=== PATIENT | female | born 1935 | race Caucasian/White ===

== ENCOUNTER 2016-11-17 09:39 | Observation (INO) | payer MEDICARE, OTHER ==
[2016-11-17] MEDS ORDERED: MORPHINE SULFATE 2 MG/ML DISP.SYRIN IV ONE ×2 (10:32→12:11)
[2016-11-17 10:33] LABS: Hemoglobin 12.9 gm/dL (12.5-16.0); Mean Cell Volume 82.4 fl (78-100); Mean Corpuscular Hgb Conc 33.9 g/dl (32-36); Mean Platelet Volume 9.4 fl (6.0-9.5); Neutrophil # 3.1 K/mm3 (1.3-6.0); Neutrophil % 58.2 % (42-75.0); Platelet Count 200 K/mm3 (150-450); Red Blood Count 4.61 M/mm3 (4.2-5.4); Red Cell Distribution Width 13.2 % (11.5-14.0); White Blood Count 5.4 K/mm3 (4.0-10.5)
--- OUTSIDE RECORDS SUMMARY | 2016-11-17 10:40 | XMS REPORT | Continuity of Care Document ---
:1935 Author Organization [facility] ([facility]) Address [address] [place] [address] Phone [phone] Care Team Providers Name Role Phone Keli Calvin Primary Care Provider [phone] Source Comments This disclosure is being made pursuant to the Care Everywhere program, applicable federal and state laws, and may not contain all informaitonavailable regarding this patient.[facility] ([facility]) Active Allergies and Adverse Reactions Not on File Current Medications Not on file Active Problems Not on file Social History Tobacco Use Types Packs/Day Years Used Date Never Assessed Plan of Care Health Maintenance Due Date Last Done Comments Hepatitis B Vaccine (1 of 3 - Primary Series) 1935 Tdap Vaccine 1945 Lipid Disorder Screening 01/09/1952 Td Vaccine 01/09/1952 Colonoscopy 1984 Zoster Vaccine 1994 Osteoporosis Screening (DXA Bone Density) 1999 Pneumococcal Vaccine (1 of 2 - PCV13) 1999 Influenza Vaccine: Seasonal (#1) 05/08/2016 Results from Last 3 Months Not on file
[2016-11-17 10:54] LABS: Troponin I Less than 0.017 ng/ml (0.00-0.10)
[2016-11-17 10:57] LABS: ALT 31 U/L (19-67); AST 22 U/L (0-48); Albumin * 3.5 gm/dl (3.4-5.0); Alkaline Phosphatase * 69 U/L (50-170); Anion Gap 14.5 mmol/L (6.8-13.8); BUN/Creatinine Ratio 14.1 (9.0-21.6); Bilirubin, Total 0.5 mg/dL (0.0-1.1); Blood Urea Nitrogen 10 mg/dL (3-23); CRP 0.3 mg/dL (0.0-0.9); Ca. Corrected For Albumin 9.1 mg/dL (8.4-10.2); Carbon Dioxide 28.1 mmol/L (24-32.6); Chloride 101 mmol/L (97-106); Glucose * 156 mg/dL (70-110); Potassium 3.6 mmol/L (3.4-4.6); Sodium 140 mmol/L (132-142); Total Protein 7.2 gm/dL (6.2-8.2)
[2016-11-17] MEDS ORDERED: MORPHINE SULFATE 2 MG/ML DISP.SYRIN ONE ×2 (11:00→12:20)
[2016-11-17] MEDS: NORMAL SALINE 1,000 ML IV PRN ×2 (11:30→20:24)
--- OUTSIDE RECORDS SUMMARY | 2016-11-17 12:44 | XMS REPORT | Continuity of Care Document ---
:1935 Author Organization [facility] ([facility]) Address [address] [place] [address] Phone [phone] Care Team Providers Name Role Phone Keli Calvin Primary Care Provider [phone] Source Comments This disclosure is being made pursuant to the Care Everywhere program, applicable federal and state laws, and may not contain all informaitonavailable regarding this patient.[facility] ([facility]) Active Allergies and Adverse Reactions Not [...]
--- NOTE | 2016-11-17 12:51 | ERNOTE ---
Medical Problem HPI - Narrative Date of Service: 11/17/16 - General Chief Complaint: General Assessment Time Seen by Provider: 11/17/16 09:58 Source: family Exam Limitations: clinical condition, other - Pt speaks softly and will not respond to some questions - Immun/Allergies/Home Medications Immunizations: IMMUNIZATION HX Immunizations Up to Date Yes History of Influenza Vaccine Yes Hx Pneumococcal Vaccination Yes Allergies/Adverse Reactions: Allergies promethazine HCl [From Phenergan] Adverse Reaction (Verified 02/27/16 15:03) tramadol Adverse Reaction (Verified 02/27/16 15:03) Home Medications: HOME MEDICATIONS ALPRAZolam [Xanax] 0.5 mg PO Q6H PRN 02/27/16 [Last Taken Unknown] Albuterol Sulfate [Proair Respiclick] 90 mcg IH Q6H PRN 02/27/16 [Last Taken Unknown] Aspirin 81 mg PO DAILY 02/27/16 [Last Taken Unknown] Esomeprazole Magnesium [Nexium] 40 mg PO DAILY 02/27/16 [Last Taken Unknown] Metoprolol Succinate [Toprol Xl] 100 mg PO DAILY 02/27/16 [Last Taken Unknown] Multivitamin [One Daily Essential] 1 each PO DAILY 02/27/16 [Last Taken Unknown] Venlafaxine HCl [Effexor] 75 mg PO DAILY 02/27/16 [Last Taken Unknown] Acetaminophen [Tylenol] 325 mg PO Q4H 11/17/16 [Last Taken Unknown] Atorvastatin Calcium 20 mg PO HS 11/17/16 [Last Taken Unknown] Cefuroxime Axetil [Ceftin] 500 mg PO BID 11/17/16 [Last Taken Unknown] Cholecalciferol (Vitamin D3) [Vitamin D3] 2,000 unit PO DAILY 11/17/16 [Last Taken Unknown] Docusate Sodium [Stool Softener] 1 - 2 cap PO HS 11/17/16 [Last Taken Unknown] Lisinopril/Hydrochlorothiazide [Lisinopril-Hctz 20-12.5 mg Tab] 0.5 tab PO DAILY 11/17/16 [Last Taken Unknown] Montelukast Sodium [Singulair] 10 mg PO HS 11/17/16 [Last Taken Unknown] Nystatin 1 each TP TID 11/17/16 [Last Taken Unknown] - History of Present History Narrative: Complicated Hx. patient brought in by family today for evaluation of headache, generalized weakness, back and side pains, occasional abdominal pains. History difficult to obtain from her. Family relates she was seen in the ED at [place] yesterday. Dx HI, bronchitis and constipation. She has not been doing well since d/c from ER w, screaming out in pain, not able to get around. Lives at home with family. She states several weeks of left HI behind her left ear that has generalized to her head and she has severe HI that she had a CT for yesterday. She relats pain in her back and sides but not sure how long this has been going on for. Had CXR yesterday that showed pleural effusion and possible pneumonia. No clear focal weakness. She states her eyes burn. Occasional abdominal pains, had x-ray for this yesterday. Old records reviewed from [place]. Timing: constant, getting worse Severity: severe Modifying Factors - (Improves): Present: other - nothing Modifying Factors - (Worsens): Present: other - nothign Review of Systems - Narrative Narrative: ROS difficult to obtain ginve condition. - Review of Systems Constitutional: Absent: fever EYE: Present: other - eyes burning ENT: Absent: sore throat Respiratory: Present: cough Cardiology: Present: other - occasional chest pains, no pleuritic pain. Gastrointestinal/Abdominal: Present: See HPI Genitourinary: Absent: dysuria Musculoskeletal: Present: back pain Skin: Absent: rash All Other Systems: All systems neg except as marked - Patient's Past Medical History Patient History - Medical: Anxiety, Arthritis Patient History - Cardiac/Respiratory: No pertinent hx Patient History - Cancer: No Hx of Cancer Patient History - Surgical Procedures: Appendectomy, Cholecystectomy, Hysterectomy, T & A Patient History - Other: None LMP (females 10-50): Menopausal - Social History Living Situations: home Abuse History: No History of abuse Psych History: Hx of Anxiety Smoking Status: Never smoker Alcohol Use: none Drug Use: none - Immunizations Immunizations Up to Date: Yes Hx Pneumococcal Vaccination: Yes History of Influenza Vaccine: Yes Physical Exam - Physical Exam General Appearance: Present: other - crying, will yell out in pain at times. Eyes closed in bed. Responds but speaks very softly and does not answer some questions. Eye Exam: Normal inspection: bilateral, PERRL: bilateral - post surgical, lenses Ears, Nose, Throat: Present: dry mucous membranes, other - No temopral artery tenderness. No trauma, no rash Neck: Present: normal inspection, other - muscular tendenrss left lateral muscles neck Respiratory: Present: no respiratory distress, no accessory muscle use. Absent : wheezing Cardiovascular/Chest: Present: regular rate, rhythm Gastrointestinal/Abdominal: Present: normal bowel sounds, other - mild YANG abdominal tenderness. No guarding or rebound. No peritoneal signs. Non- surgical exam. Back Exam: Present: other - tendernss with palpation upper back muscles Extremity Exam: Present: other - no DVT findings Neurological Exam: Present: other - difficult exam however there is no clear evidenc of stroke or acute unilateral focal motor or snesoty deficit. Skin Exam: Present: warm/dry, other - no shingles seen ED Progress - Results and Orders Patient's Lab Results:: I have reviewed the patient's lab results. - Vital Signs Patient's Vital Signs:: I have reviewed the patient's vital signs. Vital Signs: Vital Signs 11/17/16 11/17/16 11/17/16 09:40 10:45 11:15 Temperature 36.1 C L Pulse Rate 82 81 74 Respiratory 18 15 8 L Rate Blood Pressure 156/61 147/64 143/71 O2 Sat by Pulse 99 98 92 Oximetry 11/17/16 12:14 Temperature Pulse Rate 75 Respiratory 12 Rate Blood Pressure 148/81 O2 Sat by Pulse 96 Oximetry - EKG EKG: NSR EKG read: Interp. by me EKG Comments: NSR rate 78. No STEMI. Non-specific changes. - Progress/Reassessment Chief Complaint: General Assessment Progress Note-Subjective: 11/17/16 12:47 I reviewed old paperwork. I reviewed CXR, head CT and abdominal x-ray. Will treat as pneumonia based on yesterdays CXR. Unclear etiology of all Sx. D/W Dr Carrero who will admit obs for further eval and management. CPK and UA stillpending. Departure - Departure Clinical Impression: Generalized weakness, Pneumonia, Headache, Intractable pain Disposition: [facility] Referrals: [Primary Care Provider] -
[2016-11-17] MEDS: LEVOFLOXACIN/D5W 500 MG/100 ML BAG IV SCH (12:59)
[2016-11-17 14:23] LABS: Urine Appearance Clear; Urine Bilirubin Negative (NEGATIVE); Urine Blood Negative /ul (NEGATIVE); Urine Color Yellow; Urine Ketone 15 mg/dL (NEGATIVE); Urine Nitrite Negative (NEGATIVE); Urine Protein Negative (NEGATIVE); Urine Urobilinogen Normal (NORMAL); Urine WBC 0-5 /hpf (0-5)
[2016-11-17 14:24] LABS: Urine Bacteria 1+; Urine RBC None Seen /hpf (0-5)
[2016-11-17] MEDS ORDERED: ACETAMINOPHEN 325 MG TABLET PO PRN (14:24)
[2016-11-17] MEDS ORDERED: KETOROLAC TROMETHAMINE 30 MG/ML VIAL IV PRN (14:26)
[2016-11-17] MEDS ORDERED: KETOROLAC TROMETHAMINE 30 MG/ML VIAL IV ONE (14:26)
[2016-11-17] MEDS ORDERED: MORPHINE SULFATE 2 MG/ML DISP.SYRIN IV PRN (16:38)
--- NOTE | 2016-11-17 18:13 | HP ---
Chief Complaint - Chief Complaint Date of Service: 11/17/16 Time of Service: 12:00 Chief Complaint: Headache History of Present Illness: Megan is an 81 yo female with severe headache. Pain located behind left ear, she feels dizzy, nauseated, has not had a headache like this before. She denies changes in activity, diet, or medications. No trauma. No focal weakness, numbness, no gait disturbance. No hearing change, vision change. She also reports neck pain and stiffness. No fever. She does report to being under more stress lately. She reports occasional abdominal pain and myalgias. - Patient's Past Medical History Patient History - Medical: Anxiety, Arthritis, Diabetes Type 2 Patient History - Cardiac/Respiratory: No pertinent hx Patient History - Cancer: No Hx of Cancer Patient History - Surgical Procedures: Appendectomy, Cholecystectomy, Hysterectomy, T & A, Other Patient History - Other: None LMP (females 10-50): Menopausal - Family History Father Family History - Medical: Family History - Cardiac/Respiratory: CHF Mother Family History - Medical: , No pertinent hx Family History - Cardiac/Respiratory: No pertinent hx Family History - Cancer: No pertinent family hx - Social History Living Situations: home Abuse History: No History of abuse Psych History: Hx of Anxiety Smoking Status: Never smoker Have you smoked in the past 12 months: No Do you dip or chew tobacco: No Alcohol Use: none Drug Use: none - Immunizations Immunizations Up to Date: Yes Hx Pneumococcal Vaccination: Yes History of Influenza Vaccine: Yes Review Of Systems (GEN) - Review of Systems Generalized/Overall Review: Present: Malaise. Absent: Weakness, Chills, Fever EENTM: Present: No Symptoms Reported Respiratory: Present: Cough. Absent: Shortness of Breath, Orthopnea, Wheezing Cardiac: Present: No Symptoms Reported Abdominal: Present: Nausea, Abdominal Pain. Absent: Vomiting, Hematemesis, Constipation, Diarrhea Genitourinary: Present: No Symptoms Reported Musculoskeletal: Present: Muscle Pain, Neck Pain Neurological: Present: Headache, Anxiety, Depressed. Absent: Tremors, Weakness Skin: Present: No Symptoms Reported Endocrine: Present: No Symptoms Reported Allergies/Adverse Reactions: Allergies Allergy/AdvReac Type Severity Reaction Status Date / Time ibuprofen AdvReac Verified 11/23/16 14:11 NSAIDS (Non-Steroidal AdvReac Verified 11/23/16 14:11 Anti-Inflamma promethazine HCl AdvReac Verified 11/23/16 14:11 [From Phenergan] tramadol AdvReac Verified 11/23/16 14:11 Home Medications: HOME MEDICATIONS ALPRAZolam [Xanax] 0.5 mg PO Q6H PRN 02/27/16 [Last Taken Unknown] Albuterol Sulfate [Proair Respiclick] 2 puff IH Q6H PRN 02/27/16 [Last Taken Unknown] Aspirin 81 mg PO DAILY 02/27/16 [Last Taken Unknown] Esomeprazole Magnesium [Nexium] 40 mg PO DAILY 02/27/16 [Last Taken Unknown] Metoprolol Succinate [Toprol Xl] 100 mg PO DAILY 02/27/16 [Last Taken Unknown] Multivitamin [One Daily Essential] 1 each PO DAILY 02/27/16 [Last Taken Unknown] Venlafaxine HCl [Effexor] 75 mg PO DAILY 02/27/16 [Last Taken Unknown] Acetaminophen [Tylenol] 325 mg PO Q4H PRN 11/17/16 [Last Taken Unknown] Atorvastatin Calcium 20 mg PO HS 11/17/16 [Last Taken Unknown] Cholecalciferol (Vitamin D3) [Vitamin D3] 2,000 unit PO DAILY 11/17/16 [Last Taken Unknown] Docusate Sodium [Stool Softener] 1 - 2 cap PO HS 11/17/16 [Last Taken Unknown] Lisinopril/Hydrochlorothiazide [Lisinopril-Hctz 20-12.5 mg Tab] 0.5 tab PO DAILY 11/17/16 [Last Taken Unknown] Montelukast Sodium [Singulair] 10 mg PO HS 11/17/16 [Last Taken Unknown] Nystatin 1 each TP TID 11/17/16 [Last Taken Unknown] predniSONE [Prednisone] 1 tab PO DAILY #7 tab 11/18/16 [Last Taken Unknown] Exam - Exam Vital Signs: Vital Signs - Last Taken Temp 36.8 C 11/17/16 15:11 Pulse 75 11/17/16 15:11 Resp 12 11/17/16 15:11 BP 158/70 11/17/16 15:11 Pulse Ox 96 11/17/16 15:11 Constitutional: Present: Alert, Oriented x3, Cooperative ENT Exam: Present: hearing grossly normal, TMs normal Eye Exam: bilateral eye: normal inspection Neck: Present: non-tender, full range of motion, normal inspection Respiratory: Present: chest non-tender, lungs clear, normal breath sounds Cardiovascular/Chest: Present: regular rate, rhythm, no murmur Abdomen: Present: Normal bowel sounds, soft, nontender, nondistended, no rebound tenderness, no hepatospenomegaly Extremity: Present: normal inspection Skin Exam: Present: normal color, warm/dry, no cyanosis Lymphatic: Present: no adenopathy Neurologic: Present: maintenance advisor II-XII nml as tested, no motor/sensory deficits, alert , normal mood/affect, oriented x 3 Appearance: Present: appropriate appearance, appropriate insight Diagnostic Studies: Laboratory Results WBC 5.4 K/mm3 (4.0-10.5) 11/17/16 10:25 RBC 4.61 M/mm3 (4.2-5.4) 11/17/16 10:25 Hgb 12.9 gm/dL (12.5-16.0) 11/17/16 10:25 Hct 38.0 % (37.0-47.0) 11/17/16 10:25 MCV 82.4 fl (78-100) 11/17/16 10:25 MCH 28.0 pg (27-31) 11/17/16 10:25 MCHC 33.9 g/dl (32-36) 11/17/16 10:25 RDW 13.2 % (11.5-14.0) 11/17/16 10:25 Plt Count 200 K/mm3 (150-450) 11/17/16 10:25 MPV 9.4 fl (6.0-9.5) 11/17/16 10:25 Immature Gran % (Auto) 0.20 % (0.001-0.429) 11/17/16 10:25 Immature Gran # (Auto) 0.01 K/mm3 (0.000-0.0310) 11/17/16 10:25 Neutrophils % 58.2 % (42-75.0) 11/17/16 10:25 Lymphocytes % 31.9 % (20-51) 11/17/16 10:25 Monocytes % 6.9 % (0.0-9) 11/17/16 10:25 Eosinophils % 2.4 % (0.0-3.0) 11/17/16 10:25 Basophils % 0.4 % (0.0-1.0) 11/17/16 10:25 Nucleated RBC % 0.0 k/mm3 (0-1) 11/17/16 10:25 Neutrophils # 3.1 K/mm3 (1.3-6.0) 11/17/16 10:25 Lymphocytes # 1.7 k/mm3 (1.5-3.5) 11/17/16 10:25 Monocytes # 0.4 k/mm3 (0.0-1.0) 11/17/16 10:25 Eosinophils # 0.1 k/mm3 (0.0-0.7) 11/17/16 10:25 Absolute Basophils 0.0 k/mm3 (0.0-0.1) 11/17/16 10:25 ESR 29 mm/hr (0-15) H 11/17/16 10:25 Sodium 140 mmol/L (132-142) 11/17/16 10:25 Plasma Sodium 141 mmol/L (130-142) 11/17/16 10:25 Potassium 3.6 mmol/L (3.4-4.6) 11/17/16 10:25 Chloride 101 mmol/L (97-106) 11/17/16 10:25 Carbon Dioxide 28.1 mmol/L (24-32.6) 11/17/16 10:25 Anion Gap 14.5 mmol/L (6.8-13.8) H 11/17/16 10:25 BUN 10 mg/dL (3-23) 11/17/16 10:25 Creatinine 0.71 mg/dL (0.4-1.4) 11/17/16 10:25 Est GFR (Non-Af Amer) 84 mL/min (60-130) 11/17/16 10:25 BUN/Creatinine Ratio 14.1 (9.0-21.6) 11/17/16 10:25 Random Glucose 156 mg/dL (70-110) H 11/17/16 10:25 Lactic Acid, Venous 2.2 mmol/L (0.4-2.0) H* 11/17/16 12:55 Calcium 9.0 mg/dL (7.9-10.9) 11/17/16 10:25 Calcium Adj for Albumin 9.1 mg/dL (8.4-10.2) 11/17/16 10:25 Total Bilirubin 0.5 mg/dL (0.0-1.1) 11/17/16 10:25 AST 22 U/L (0-48) 11/17/16 10:25 ALT 31 U/L (19-67) 11/17/16 10:25 Alkaline Phosphatase 69 U/L (50-170) 11/17/16 10:25 Creatine Kinase 56 U/L (0-259) 11/17/16 10:28 Troponin I Less than 0.017 ng/ml (0.00-0.10) 11/17/16 10:25 C-Reactive Prot, Quant 0.3 mg/dL (0.0-0.9) 11/17/16 10:25 Total Protein 7.2 gm/dL (6.2-8.2) 11/17/16 10:25 Albumin 3.5 gm/dl (3.4-5.0) 11/17/16 10:25 Lipase 117 U/L (73-393) 11/17/16 10:20 Urine Color Yellow 11/17/16 13:52 Urine Appearance Clear 11/17/16 13:52 Urine pH 8.0 pH (5.0-7.0) H 11/17/16 13:52 Ur Specific [place] 1.020 SP.GR. (1.005-1.010) 11/17/16 13:52 Urine Protein Negative mg/dL (NEGATIVE) 11/17/16 13:52 Urine Glucose (UA) Negative mg/dL (NEGATIVE) 11/17/16 13:52 Urine Ketones 15 mg/dL (NEGATIVE) 11/17/16 13:52 Urine Blood Negative /ul (NEGATIVE) 11/17/16 13:52 Urine Nitrate Negative (NEGATIVE) 11/17/16 13:52 Urine Bilirubin Negative mg/dl (NEGATIVE) 11/17/16 13:52 Urine Urobilinogen Normal EU/dl (NORMAL) 11/17/16 13:52 Ur Leukocyte Esterase Negative /ul (NEGATIVE) 11/17/16 13:52 Urine RBC None seen /hpf (0-5) 11/17/16 13:52 Urine WBC 0-5 /hpf (0-5) 11/17/16 13:52 Ur Epithelial Cells 5-10 /hpf (0-5) H 11/17/16 13:52 Urine Bacteria 1+ (NONE) H 11/17/16 13:52 Urine Culture Comments No culture indicated 11/17/16 13:52 Influenza Type A Ag Negative (NEGATIVE) 11/17/16 14:35 Influenza Type B Ag Negative (NEGATIVE) 11/17/16 14:35 Assessment/Plan - Assessment/Plan (1) Severe headache Assessment: Megan is an 81 yo female with severe headache, myalgias, neck pain, and generalized not feeling well. Bloodwork reviewed which shows elevated ESR and lactic acid, but otherwise within normal limits. Patient recently had normal head CT at [facility]. Patient is in too much pain to be discharged from ER, therefore medicine was contacted for admission for observation and further evaluation. Pain is localized behind left ear. No ear abnormality note. No trauma. Will evaluate further with Brain MRI, consider lumbar puncture, however patient declines this at this time. No significant leukocytosis, no fever, no nuchal ridgity so I do not suspect meningitis. With patients recent stress and neck pain possibly severe tension headache, will treat with muscle relaxors and IV pain medication prn. Problem: Acute (2) Intractable pain Problem: Acute
[2016-11-17] MEDS ORDERED: METHYLPREDNISOLONE SOD SUCC 60 MG in WATER FOR INJ.,BACTERIOSTATIC 0 ML IV ONE (18:39)
[2016-11-17] MEDS: POLYETHYLENE GLYCOL 3350 119 GM BTL PO SCH ×2 (18:52→19:07)
[2016-11-17] MEDS ORDERED: METHYLPREDNISOLONE SOD SUCC/PF 125 MG/2 ML VIAL IV ONE (19:00)
[2016-11-17] MEDS ORDERED: METHYLPREDNISOLONE SOD SUCC 60 MG in WATER FOR INJ.,BACTERIOSTATIC 0 ML IV SCH (20:15)
[2016-11-17] MEDS ORDERED: MONTELUKAST SODIUM 10 MG TABLET PO SCH (21:00)
[2016-11-17] MEDS ORDERED: ROSUVASTATIN CALCIUM 10 MG TABLET PO SCH (21:00)
[2016-11-17] MEDS ORDERED: ONDANSETRON HCL/PF 2 MG/ML VIAL IV PRN (21:44)
[2016-11-17] MEDS: ALPRAZolam 0.5 MG TABLET PO PRN (23:32)
[2016-11-18] MEDS: NORMAL SALINE 1,000 ML IV PRN ×2 (04:39→13:07)
[2016-11-18] MEDS ORDERED: PANTOPRAZOLE SODIUM 40 MG TABLET.EC PO SCH (07:00)
[2016-11-18] MEDS ORDERED: VENLAFAXINE HCL 75 MG TABLET PO SCH (09:00)
[2016-11-18] MEDS ORDERED: CHOLECALCIFEROL 1,000 UNIT CAPSULE PO SCH (09:00)
[2016-11-18] MEDS ORDERED: LISINOPRIL 10 MG TABLET PO SCH (09:00)
[2016-11-18] MEDS ORDERED: METOPROLOL SUCCINATE 100 MG TABLET.SA PO SCH (09:00)
[2016-11-18] MEDS ORDERED: HYDROCHLOROTHIAZIDE 25 MG TABLET PO SCH (09:00)
[2016-11-18] MEDS ORDERED: MULTIVITAMINS 1 CAP CAPSULE PO SCH (09:00)
[2016-11-18] MEDS: POLYETHYLENE GLYCOL 3350 119 GM BTL PO SCH (09:43)
[2016-11-18] MEDS: ALPRAZolam 0.5 MG TABLET PO PRN (09:54)
[2016-11-18 10:58] LABS: Hematocrit 36.1 % (37.0-47.0); Hemoglobin 12.1 gm/dL (12.5-16.0); Mean Cell Volume 82.2 fl (78-100); Mean Corpuscular Hemoglobin 27.6 pg (27-31); Mean Corpuscular Hgb Conc 33.5 g/dl (32-36); Mean Platelet Volume 9.5 fl (6.0-9.5); Neutrophil # 4.8 K/mm3 (1.3-6.0); Neutrophil % 82.3 % (42-75.0); Platelet Count 199 K/mm3 (150-450); Red Blood Count 4.39 M/mm3 (4.2-5.4); Red Cell Distribution Width 13.1 % (11.5-14.0); White Blood Count 5.8 K/mm3 (4.0-10.5)
[2016-11-18 11:10] VITALS: BP 143/71
[2016-11-18 11:10] LABS: Albumin * 3.3 gm/dl (3.4-5.0); Anion Gap 15.5 mmol/L (6.8-13.8); BUN/Creatinine Ratio 11.6 (9.0-21.6); Bilirubin, Total 0.4 mg/dL (0.0-1.1); Ca. Corrected For Albumin 8.6 mg/dL (8.4-10.2); Calcium * 8.4 mg/dL (7.9-10.9); Carbon Dioxide 22.1 mmol/L (24-32.6); Potassium 3.6 mmol/L (3.4-4.6); Total Protein 6.9 gm/dL (6.2-8.2)
[2016-11-18] MEDS ORDERED: LEVOFLOXACIN/D5W 500 MG/100 ML BAG IV SCH (13:30)
[2016-11-18] MEDS: LEVOFLOXACIN/D5W 500 MG/100 ML BAG IV SCH (13:32)
--- NOTE | 2016-11-18 15:00 | DS ---
(1) Bronchitis Problem: Acute (2) Viral syndrome Problem: Acute (3) Generalized weakness Problem: Acute (4) Headache Problem: Acute Qualifiers: Headache type: tension-type Headache chronicity pattern: acute headache Intractability: not intractable Qualified Code(s): G44.209 - Tension-type headache, unspecified, not intractable (5) Intractable pain Problem: Acute Description of Stay: Megan Jack is an 81 yo female admitted with severe headache, malaise, myalgias, and cough. She had been evaluated with CT scan recently at another facility that was negative. A brain MRI was performed during hospital course which showed no etiology for her pain. Bloodwork overall normal, however elevated ESR and lactate. Chest xray showed no acute changes. Discussed getting a lumbar puncture, however patient declined. She had no nuchal stiffness, fever , or leukocytosis so I do not suspect meningitis. Inflenza was checked and negative. With her symptoms of generalized malaise and myalgias suspect viral illness with potential for bronchitis with her coughing that caused significant neck tension and tension headache. There was nothing else identified to explain her symptoms. She was treated with muscle relaxors and IV steroids and did improve some and felt comfortable being discharged to home. I feel that anti- inflammatories would work best for her pain but she is reportedly allergic to NSAIDs. She reports no problems with prednisone in the past, will therefore give a burst of prednisone for her at discharge to see if this will help further. Procedures Performed: none Discharge Disposition: Home self care Disposition: Home self-care Condition: Fair Discharge Activity: Activity as tolerated Discharge Diet: General/regular food Referrals: Meena Alcala DO [Associate] - (May call to establish in [place]) Faye Morales DO [Staff Physician] - (May call to establish in [place]) Problem Oriented Discharge Instructions to Patient/Family: Acute Bronchitis, [id number] Additional Patient Instructions (free text): Patient would like to establish with new physician. Dr. Morales and Dr. Alcala were names given as options to call and contact for appointments. Continue taking Azithromycin prescribed previously from the ER. Use massage and heat to neck. Prescriptions (Any new or edited meds): predniSONE [Prednisone] 1 tab PO DAILY #7 tab Complete Home Medications List: Complete Home Medication List: ALPRAZolam [Xanax] 0.5 mg PO Q6H PRN 02/27/16 Albuterol Sulfate [Proair Respiclick] 2 puff IH Q6H PRN 02/27/16 Aspirin 81 mg PO DAILY 02/27/16 Esomeprazole Magnesium [Nexium] 40 mg PO DAILY 02/27/16 Metoprolol Succinate [Toprol Xl] 100 mg PO DAILY 02/27/16 Multivitamin [One Daily Essential] 1 each PO DAILY 02/27/16 Venlafaxine HCl [Effexor] 75 mg PO DAILY 02/27/16 Acetaminophen [Tylenol] 325 mg PO Q4H PRN 11/17/16 Atorvastatin Calcium 20 mg PO HS 11/17/16 Cholecalciferol (Vitamin D3) [Vitamin D3] 2,000 unit PO DAILY 11/17/16 Docusate Sodium [Stool Softener] 1 - 2 cap PO HS 11/17/16 Lisinopril/Hydrochlorothiazide [Lisinopril-Hctz 20-12.5 mg Tab] 0.5 tab PO DAILY 11/17/16 Montelukast Sodium [Singulair] 10 mg PO HS 11/17/16 Nystatin 1 each TP TID 11/17/16 predniSONE [Prednisone] 1 tab PO DAILY #7 tab 11/18/16
== END 2016-11-18 16:00 | disposition home or self-care (01) ==
LOC: SUPCPDRO 09:39 → ER 09:39 → MS 12:39 → INTOOBSV 14:18 → OBSVTOIN 14:18
PROVIDERS: ADMIT Family Medicine; ATTEND Family Medicine
DX: B34.9 Viral infection, unspecified (principal); J40 Bronchitis, not specified as acute or chronic; R51 Headache; R53.1 Weakness
CPT/HCPCS: 36415; 70553; 71010; 80053; 81001; 82550; 83605; 83690; 84484; 85025; 85652; 86140; 87040; 87400; 93005; 96365; 96375; 99284; G0378

== ENCOUNTER 2016-11-23 13:43 | Emergency (ER) | payer MEDICARE, OTHER ==
[2016-11-23 14:20] LABS: Urine Bilirubin Negative (NEGATIVE); Urine Blood Negative /ul (NEGATIVE); Urine Ketone Negative (NEGATIVE); Urine Nitrite Negative (NEGATIVE); Urine Protein Negative (NEGATIVE); Urine Urobilinogen Normal (NORMAL); Urine pH 7.5 pH (5.0-7.0)
[2016-11-23 14:26] LABS: Urine Color Yellow
[2016-11-23 14:27] LABS: Urine Appearance Clear; Urine Bacteria None Seen; Urine RBC None Seen /hpf (0-5); Urine WBC 0-5 /hpf (0-5)
--- OUTSIDE RECORDS SUMMARY | 2016-11-23 15:02 | XMS REPORT | Continuity of Care Document ---
:1935 Author Organization [facility] ([facility]) Address [address] [place] [address] Phone [phone] Care Team Providers Name Role Phone Keli Calvin Primary Care Provider [phone] Source Comments This disclosure is being made pursuant to the Care Everywhere program, applicable federal and state laws, and may not contain all informaitonavailable regarding this patient.[facility] ([facility]) Active Allergies and Adverse Reactions Not [...]
[2016-11-23 15:22] VITALS: BP 153/74
--- NOTE | 2016-11-23 15:32 | ERNOTE ---
Medical Problem HPI - Narrative Date of Service: 11/23/16 - General Chief Complaint: General Assessment Time Seen by Provider: 11/23/16 14:47 Source: patient, family - daughter Exam Limitations: no limitations - Immun/Allergies/Home Medications Immunizations: IMMUNIZATION HX Immunizations Up to Date Yes History of Influenza Vaccine Yes Hx Pneumococcal Vaccination Yes Allergies/Adverse Reactions: Allergies ibuprofen Adverse Reaction (Verified 11/23/16 14:11) NSAIDS (Non-Steroidal Anti-Inflamma Adverse Reaction (Verified 11/23/16 14:11) promethazine HCl [From Phenergan] Adverse Reaction (Verified 11/23/16 14:11) tramadol Adverse Reaction (Verified 11/23/16 14:11) Home Medications: HOME MEDICATIONS ALPRAZolam [Xanax] 0.5 mg PO Q6H PRN 02/27/16 [Last Taken Unknown] Albuterol Sulfate [Proair Respiclick] 2 puff IH Q6H PRN 02/27/16 [Last Taken Unknown] Aspirin 81 mg PO DAILY 02/27/16 [Last Taken Unknown] Esomeprazole Magnesium [Nexium] 40 mg PO DAILY 02/27/16 [Last Taken Unknown] Metoprolol Succinate [Toprol Xl] 100 mg PO DAILY 02/27/16 [Last Taken Unknown] Multivitamin [One Daily Essential] 1 each PO DAILY 02/27/16 [Last Taken Unknown] Venlafaxine HCl [Effexor] 75 mg PO DAILY 02/27/16 [Last Taken Unknown] Acetaminophen [Tylenol] 325 mg PO Q4H PRN 11/17/16 [Last Taken Unknown] Atorvastatin Calcium 20 mg PO HS 11/17/16 [Last Taken Unknown] Cholecalciferol (Vitamin D3) [Vitamin D3] 2,000 unit PO DAILY 11/17/16 [Last Taken Unknown] Docusate Sodium [Stool Softener] 1 - 2 cap PO HS 11/17/16 [Last Taken Unknown] Lisinopril/Hydrochlorothiazide [Lisinopril-Hctz 20-12.5 mg Tab] 0.5 tab PO DAILY 11/17/16 [Last Taken Unknown] Montelukast Sodium [Singulair] 10 mg PO HS 11/17/16 [Last Taken Unknown] Nystatin 1 each TP TID 11/17/16 [Last Taken Unknown] predniSONE [Prednisone] 1 tab PO DAILY #7 tab 11/18/16 [Last Taken Unknown] - History of Present History Narrative: Pt here because still feeling weak. She was seen in [place] [facility] a week ago, went home, and the next day came here to the ER and says she was admitted overnight for bronchitis and pneumonia and mastoiditis. States the next day she was discharged on z-pack to continue at home. States she took the last dose yesterday but still feels weak and wonders if the illness is not better. She does say she has some dysuria and has history of frequent uti's. She lives with her adult children in [place]. Date (Duration): 11/16/16 Timing: constant Severity: moderate Review of Systems - Review of Systems Constitutional: Present: See HPI, recent illness, weakness, fatigue EYE: Present: no symptoms reported ENT: Present: no symptoms reported Respiratory: Present: See HPI Cardiology: Present: no symptoms reported Gastrointestinal/Abdominal: Present: no symptoms reported Genitourinary: Present: See HPI Musculoskeletal: Present: no symptoms reported Skin: Present: no symptoms reported Neurological: Present: weakness - GENERALIZED. Endocrine: Present: no symptoms reported - Patient's Past Medical History Patient History - Medical: Anxiety, Arthritis, Diabetes Type 2 Patient History - Cardiac/Respiratory: No pertinent hx Patient History - Cancer: No Hx of Cancer Patient History - Surgical Procedures: Appendectomy, Cholecystectomy, Hysterectomy, T & A, Other Patient History - Other: None - Family History Father Family History - Medical: Family History - Cardiac/Respiratory: CHF Mother Family History - Medical: , No pertinent hx Family History - Cardiac/Respiratory: No pertinent hx Family History - Cancer: No pertinent family hx - Social History Living Situations: home - WITH GROWN CHILDREN Abuse History: No History of abuse Psych History: Hx of Anxiety Does anyone smoke in the home?: No Alcohol Use: none Drug Use: none - Immunizations Immunizations Up to Date: Yes Hx Pneumococcal Vaccination: Yes History of Influenza Vaccine: Yes Physical Exam - Physical Exam General Appearance: Present: wd/wn, alert, no apparent distress Ears, Nose, Throat: Present: normal ENT inspection, hearing grossly normal, normal pharynx. Absent: nasal congestion, pharyngeal erythema Neck: Present: normal inspection, nontender, carotid bruit. Absent: lymphadenopathy (R), lymphadenopathy (L), thyromegaly Respiratory: Present: no respiratory distress, normal breath sounds, no accessory muscle use, chest nontender, lungs clear Cardiovascular/Chest: Present: regular rate, rhythm, no murmur, normal peripheral pulses Gastrointestinal/Abdominal: Present: normal bowel sounds, nontender, nondistended, soft, no organomegaly Extremity Exam: Present: normal inspection, non-tender, no edema, normal range of motion Neurological Exam: Present: alert, oriented, no motor/sensory deficits, other - SOMEWHAT FLAT AFFECT. Skin Exam: Present: normal color, warm/dry ED Progress - Results and Orders Patient's Lab Results:: I have reviewed the patient's lab results. - Vital Signs Vital Signs: Vital Signs 11/23/16 11/23/16 11/23/16 14:08 14:38 15:08 Pulse Rate 60 58 L 59 L Respiratory 16 14 16 Rate Blood Pressure 166/97 147/79 153/74 O2 Sat by Pulse 98 96 93 Oximetry - X-Ray X-Ray #1 X-Ray: chest X-ray Comments: Patient Name:SWEETIE SARKAR Date: 1935 Sex: F Order Number: [id number] Unique Exam ID: [id number] Exam Requested: CXRPALAT - Chest PA Lateral * Date Scheduled: Study Priority: Requesting Service: Requesting Physician: Bob Marroquin Reason for Exam: Radiological Report : Exam Date: 11/23/2016 16:22 Ordering Physician: Bob Marroquin HISTORY: Cough, shortness of breath, and fever for one week TWO VIEW CHEST Comparison: 11/17/2016 Technique: Upright frontal and lateral views of the chest were obtained. Correlation is made with the visualized mediastinal on a prior right shoulder film dated 02/27/2016 Findings: The cardiac silhouette is within normal limits of size. The mediastinum and hilum are unchanged. There is a [id number] hiatal hernia. There is a calcified granuloma in the right lower lobe. The lung dobbs are clear. I do not see evidence for an infiltrate, effusion, or pulmonary edema. IMPRESSION: 1. SMALL TO MODERATE HIATAL HERNIA. 2. NO ACUTE CARDIOPULMONARY PROCESS. Electronically signed by Oneil Wiley M.D.. - Progress/Reassessment Chief Complaint: General Assessment Progress:: Unchanged Departure - Departure Clinical Impression: Weakness generalized Disposition: Home Follow Up Needed Condition: Fair Instructions: Weakness, [id number] Additional Instructions: Your chest xray showed no new problems. The urine had some mild changes that warranted a urine culture that will take two days to get results. The blood work was fairly normal. the antibiotic is one that will work for about 5 days in the body after the last dose. We will wait on the the urine culture results and if it is positive for growing bacteria we will call you to tell you what to do next. If it is normal but you are not gradually improving, or if you feel you are worse, you should get rechecked by your family doctor or return to the ER. Referrals: Rhett Carrero DO [Primary Care Provider] -
[2016-11-23 15:43] LABS: Hematocrit 38.8 % (37.0-47.0); Hemoglobin 13.5 gm/dL (12.5-16.0); Mean Corpuscular Hemoglobin 28.2 pg (27-31); Mean Corpuscular Hgb Conc 34.8 g/dl (32-36); Mean Platelet Volume 9.1 fl (6.0-9.5); Neutrophil # 9.8 K/mm3 (1.3-6.0); Neutrophil % 84.5 % (42-75.0); Platelet Count 240 K/mm3 (150-450); Red Blood Count 4.79 M/mm3 (4.2-5.4); Red Cell Distribution Width 13.3 % (11.5-14.0); White Blood Count 11.5 K/mm3 (4.0-10.5)
[2016-11-23 15:52] LABS: Anion Gap 13.9 mmol/L (6.8-13.8); BUN/Creatinine Ratio 16.3 (9.0-21.6); Calcium * 9.5 mg/dL (7.9-10.9); Carbon Dioxide 28.8 mmol/L (24-32.6); Estimated Creat Clear 28.9; Potassium 3.7 mmol/L (3.4-4.6)
== END 2016-11-23 17:35 | disposition home or self-care (01) ==
LOC: ER 13:43
DX: R53.1 Weakness (principal)

== ENCOUNTER 2017-04-03 12:49 | Emergency (ER) | payer MEDICARE, OTHER ==
--- NOTE | 2017-04-03 13:25 | ERNOTE ---
Medical Problem HPI - General Chief Complaint: General Assessment Time Seen by Provider: 04/03/17 13:08 Source: patient, family Exam Limitations: no limitations - Immun/Allergies/Home Medications Immunizations: IMMUNIZATION HX Immunizations Up to Date Yes History of Influenza Vaccine Yes Hx Pneumococcal Vaccination Yes Allergies/Adverse Reactions: Allergies ibuprofen Adverse Reaction (Verified 04/03/17 13:09) NSAIDS (Non-Steroidal Anti-Inflamma Adverse Reaction (Verified 04/03/17 13:09) promethazine HCl [From Phenergan] Adverse Reaction (Verified 04/03/17 13:09) tramadol Adverse Reaction (Verified 04/03/17 13:09) Home Medications: HOME MEDICATIONS ALPRAZolam [Xanax] 0.5 mg PO Q6H PRN 02/27/16 [Last Taken Unknown] Albuterol Sulfate [Proair Respiclick] 2 puff IH Q6H PRN 02/27/16 [Last Taken Unknown] Aspirin 81 mg PO DAILY 02/27/16 [Last Taken Unknown] Esomeprazole Magnesium [Nexium] 40 mg PO DAILY 02/27/16 [Last Taken Unknown] Metoprolol Succinate [Toprol Xl] 100 mg PO DAILY 02/27/16 [Last Taken Unknown] Multivitamin [One Daily Essential] 1 each PO DAILY 02/27/16 [Last Taken Unknown] Acetaminophen [Tylenol] 325 mg PO Q4H PRN 11/17/16 [Last Taken Unknown] Atorvastatin Calcium 20 mg PO HS 11/17/16 [Last Taken Unknown] Cholecalciferol (Vitamin D3) [Vitamin D3] 2,000 unit PO DAILY 11/17/16 [Last Taken Unknown] Docusate Sodium [Stool Softener] 1 - 2 cap PO HS 11/17/16 [Last Taken Unknown] Lisinopril/Hydrochlorothiazide [Lisinopril-Hctz 20-12.5 mg Tab] 0.5 tab PO DAILY 11/17/16 [Last Taken Unknown] Montelukast Sodium [Singulair] 10 mg PO HS 11/17/16 [Last Taken Unknown] - History of Present History Narrative: Patient presents for not feeling well. She complains of inability to have a bowel movement chills and feeling sick. Review of Systems - Review of Systems Constitutional: Present: weakness, fatigue, malaise EYE: Present: no symptoms reported ENT: Present: no symptoms reported Respiratory: Present: no symptoms reported Cardiology: Present: chest pain - H and has had off-and-on chest pain in the left chest but done now. She denies a cough. She denies diaphoresis. Gastrointestinal/Abdominal: Present: See HPI, other - complains of abdominal pain and inability to have a bowel movement Genitourinary: Present: no symptoms reported Musculoskeletal: Present: no symptoms reported Skin: Present: no symptoms reported Neurological: Present: no symptoms reported Psych: Present: other - patient states she has a lot of stress - Patient's Past Medical History Patient History - Medical: Anxiety, Arthritis, Diabetes Type 2 Patient History - Cardiac/Respiratory: No pertinent hx Patient History - Cancer: No Hx of Cancer Patient History - Surgical Procedures: Appendectomy, Cholecystectomy, Hysterectomy, T & A, Other Patient History - Other: None LMP (females 10-50): Menopausal - Family History Father Family History - Medical: Family History - Cardiac/Respiratory: CHF Mother Family History - Medical: , No pertinent hx Family History - Cardiac/Respiratory: No pertinent hx Family History - Cancer: No pertinent family hx - Social History Living Situations: home Abuse History: No History of abuse Psych History: Hx of Anxiety Does anyone smoke in the home?: No Smoking Status: Never smoker Alcohol Use: none Drug Use: none - Immunizations Immunizations Up to Date: Yes Hx Pneumococcal Vaccination: Yes History of Influenza Vaccine: Yes Physical Exam - Physical Exam General Appearance: Present: wd/wn, alert, no apparent distress Neck: Present: normal inspection Respiratory: Present: no respiratory distress, normal breath sounds, no accessory muscle use, chest nontender, lungs clear Cardiovascular/Chest: Present: regular rate, rhythm, no murmur, normal peripheral pulses Gastrointestinal/Abdominal: Present: soft, other - M and appears slightly distended with increased bowel sounds Extremity Exam: Present: normal inspection Neurological Exam: Present: alert, oriented ED Progress - Results and Orders Patient's Lab Results:: I have reviewed the patient's lab results. - Vital Signs Patient's Vital Signs:: I have reviewed the patient's vital signs. Vital Signs: Vital Signs 04/03/17 12:59 Temperature 36.2 C L Pulse Rate 69 Respiratory 16 Rate Blood Pressure 149/91 O2 Sat by Pulse 97 Oximetry - EKG EKG read: Interp. by me - Progress/Reassessment Chief Complaint: General Assessment Plan - Plan Plan: This case was discussed with Dr. Morales who presented to the patient's bedside and cleared the patient to be discharged home. Departure - Departure Clinical Impression: Weakness Disposition: Home self-care Condition: Good Instructions: Fatigue Additional Instructions: Please follow-up with your primary care doctor tomorrow and appointment has been made by Dr. Morales. Referrals: Faye Morales DO [Primary Care Provider] -
[2017-04-03 13:45] LABS: Hematocrit 35.3 % (37.0-47.0); Hemoglobin 12.4 gm/dL (12.5-16.0); Mean Cell Volume 79.5 fl (78-100); Mean Corpuscular Hemoglobin 27.9 pg (27-31); Mean Corpuscular Hgb Conc 35.1 g/dl (32-36); Mean Platelet Volume 9.3 fl (6.0-9.5); Neutrophil # 4.5 K/mm3 (1.3-6.0); Neutrophil % 58.1 % (42-75.0); Platelet Count 214 K/mm3 (150-450); Red Blood Count 4.44 M/mm3 (4.2-5.4); Red Cell Distribution Width 12.2 % (11.5-14.0); White Blood Count 7.7 K/mm3 (4.0-10.5)
[2017-04-03 14:00] LABS: Urine Bilirubin Negative (NEGATIVE); Urine Blood Negative /ul (NEGATIVE); Urine Ketone Negative (NEGATIVE); Urine Nitrite Negative (NEGATIVE); Urine Protein Negative (NEGATIVE); Urine Specific Gravity <=1.005 SP.GR. (1.005-1.010); Urine Urobilinogen Normal (NORMAL); Urine pH 6.5 pH (5.0-7.0)
[2017-04-03 14:03] LABS: ALT 36 U/L (19-67); AST 29 U/L (0-48); Albumin * 3.7 gm/dl (3.4-5.0); Alkaline Phosphatase * 93 U/L (50-170); BUN/Creatinine Ratio 13.9 (9.0-21.6); Bilirubin, Total 0.4 mg/dL (0.0-1.1); Blood Urea Nitrogen 10 mg/dL (3-23); Ca. Corrected For Albumin 9.1 mg/dL (8.4-10.2); Calcium * 9.2 mg/dL (7.9-10.9); Carbon Dioxide 26.4 mmol/L (24-32.6); Chloride 92 mmol/L (97-106); Glucose * 117 mg/dL (70-110); Potassium 3.4 mmol/L (3.4-4.6); Sodium 131 mmol/L (132-142); Total Protein 7.6 gm/dL (6.2-8.2); Troponin I Less than 0.017 ng/ml (0.00-0.10)
[2017-04-03] MEDS ORDERED: NORMAL SALINE 1,000 ML IV ONE (14:05)
[2017-04-03] MEDS ORDERED: LEVOFLOXACIN/D5W 750 MG/150 ML BAG IV ONE (14:06)
[2017-04-03 14:35] LABS: Urine Color Yellow
[2017-04-03 14:36] LABS: Urine Amorphous Sediment Few - 1+ (NONE-FEW); Urine Appearance Clear; Urine Bacteria None Seen; Urine RBC None Seen /hpf (0-5); Urine WBC None Seen /hpf (0-5)
[2017-04-03 16:09] VITALS: BP 138/81
== END 2017-04-03 16:08 | disposition home or self-care (01) ==
LOC: ER 12:49
DX: R53.1 Weakness (principal); F41.9 Anxiety disorder, unspecified